=== PATIENT | female | born 1980 | race Caucasian/White ===

== ENCOUNTER 2019-05-19 17:45 | Inpatient (IN) ==
[2019-05-19 19:11] LABS: ALLEN TEST YES; BE 2.4 mmoll (-3.0-3.0); BLOOD TYPE ARTERIAL; HCO3-(ACT) 26.7 mmoll (20.0-26.0); METHB 0.9 % (0.0-1.5); O2(CT) 13.9 mL/dL (15.0-23.0); O2HB 92.9 % (95.0-99.0); PCO2(98.6) 46 mmHg (35-45); PO2(98.6) 64 mmHg (60-100); SAMPLE BLOOD; SAO2 96.3 % (95.0-100.0); THB 10.6 g/dL (11.5-17.4); pH(98.6) 7.39 (7.35-7.45)
[2019-05-19 19:12] LABS: MODALITY CANNULA
[2019-05-19 19:19] LABS: BASO# 0.01 X1000 (0.0-0.2); BASO% 0.1 % (0.0-0.8); EOS# 0.01 X1000 (0.0-0.7); EOS% 0.1 % (0.0-10.0); HEMATOCRIT 34.4 % (37.0-47.0); HEMOGLOBIN 10.4 g/dL (12.0-16.0); IMM GRAN# 0.03 X1000 (0.0-0.04); IMM GRAN% 0.4 % (0.0-0.5); LYMPH# 0.31 X1000 (1.2-3.4); LYMPH% 3.9 % (20.5-51.1); MCHC 30.2 g/dL (33-37); MCV 79.3 FL (81-99); MONO# 0.51 X1000 (0.11-0.59); MONO% 6.4 % (1.7-9.3); MPV 9.4 FL (7.4-10.4); NEUT# 7.06 X1000 (1.4-6.5); NEUT% 89.1 % (42.2-75.2); PLT 203 X1000 (130-400); RBC 4.34 XMIL (4.2-5.4); RDW 15.7 % (11.5-14.5); WBC 7.93 X1000 (4.8-10.8)
--- NOTE | 2019-05-19 19:35 | Diag Imaging Result Doc PS360 ---
EXAM: CHEST-1 VIEW 05/19/2019 HISTORY: sob TECHNIQUE: AP portable semiupright at 1923 COMMENT: There is increased pulmonary vascularity and ill-defined interstitial and alveolar opacity particularly in the right perihilar region and lower lobe. This was not present on 11/08/2015. IMPRESSION: Pulmonary edema and/or pneumonia. Electronically signed by Oscar Lucas 05/19/2019 7:33 PM
[2019-05-19 19:49] LABS: AGAP 11; ALB/GLOB RATIO 1.1; ALBUMIN 3.6 g/dL (3.5-5.0); ALKALINE PHOSPHATASE 125 U/L (32-104); BUN 16 mg/dL (8-22); CHLORIDE 97 mmol/L (98-107); COSMO 266; CREATININE 0.6 mg/dL (0.5-0.9); ESTIMATED GFR > 60; GLUCOSE 96 mg/dL (70-104); GOT 18 U/L (10-30); GPT 9 U/L (10-36); POTASSIUM 4.2 mmol/L (3.5-5.1); SODIUM 132 mmol/L (136-145); TCO2 24 mmol/L (25-35); TOTAL PROTEIN 6.9 g/dL (6.3-8.3)
[2019-05-19] MEDS ORDERED: ZITHROMAX 500 MG/NS 500 MG/250 ML IVPB IV ONE (20:44)
[2019-05-19] MEDS ORDERED: ROCEPHIN 1 GM in NS 50 ML IV ONE (20:44)
--- NOTE | 2019-05-20 00:34 | EKG Report ---
Test Performed on : 05/19/2019 9:09:02 PM Test Reason : od Blood Pressure : / mmHG Vent. Rate : 095 BPM Atrial Rate : 095 BPM P-R Int : 158 ms QRS Dur : 090 ms QT Int : 330 ms P-R-T Axes : 022 007 -18 degrees QTc Int : 414 ms Normal sinus rhythm. Cannot rule out Anterior infarct , age undetermined Abnormal ECG When compared with ECG of 09-OCT-2017 17:58, Nonspecific T wave abnormality now evident in Anterolateral leads Unconfirmed Result
[2019-05-20] MEDS: ROCEPHIN 1 GM in NS 50 ML IV SCH ×2 (00:50→22:28)
[2019-05-20] MEDS: ZITHROMAX 500 MG/NS 500 MG/250 ML IVPB IV SCH ×2 (00:50→23:02)
[2019-05-20] MEDS ORDERED: NS 1,000 ML IV SCH ×2 (01:27→03:04)
[2019-05-20] MEDS ORDERED: SALINE LOCK IV FLUID XX ONE ×2 (03:08→03:20)
[2019-05-20] MEDS ORDERED: NS 1,000 ML IV ONE (03:08)
[2019-05-20 03:28] LABS: ALLEN TEST YES; BE 3.2 mmoll (-3.0-3.0); BLOOD TYPE ARTERIAL; HCO3-(ACT) 27.4 mmoll (20.0-26.0); O2(CT) 13.6 mL/dL (15.0-23.0); O2HB 95.8 % (95.0-99.0); PCO2(98.6) 42 mmHg (35-45); PO2(98.6) 87 mmHg (60-100); SAMPLE BLOOD; pH(98.6) 7.43 (7.35-7.45)
[2019-05-20 03:30] LABS: MODALITY VENTIMASK
[2019-05-20 04:06] LABS: URINE SOURCE CATH
--- NOTE | 2019-05-20 04:08 | HISTORY AND PHYSICAL ---
CHIEF COMPLAINT: Altered mental status. HISTORY OF PRESENT ILLNESS: Ms. Shereen Aldana is a 38-year-old female who has a history of fibromyalgia, aortic aneurysm, migraine headaches, obesity. The patient is not a good historian. She was admitted to the hospital because of change in her mental status. The patient takes a number of medications, a couple have altered mental status, including alprazolam, amitriptyline, vitamin salts, Subutex as well as Neurontin. I have requested a CT scan of the brain, which is currently pending. Her urine drug screen has also been request and is currently pending at this time. The patient also describes having cough productive of yellowish-greenish sputum. As well as shortness of breath, and also hemoptysis. No chest pain. Chest x-ray done at time of presentation showed evidence of pulmonary edema and/or pneumonia. The patient has now ended up being admitted to the floor for further management. PAST MEDICAL HISTORY: Fibromyalgia, aortic aneurysm, migraine headaches, obesity. PAST SURGICAL HISTORY: She has had a tonsillectomy. ALLERGIES: She is allergic to sulfa. SOCIAL HISTORY: She denies any history of cigarette smoking, alcohol, or drug use. FAMILY HISTORY: Positive for diabetes mellitus. MEDICATIONS INCLUDE: 1. Xanax 2 mg p.o. 3 times a day. 2. Amitriptyline 100 mg p.o. at bedtime. 3. Biotin 5000 mcg p.o. daily. 4.Subutex 8 mg sublingual 3 times a day. 5.Gabapentin 600 mg p.o. 3 times a day. 6. Methocarbamol 50 mg as directed. REVIEW OF SYSTEMS: Constitutional: She has fever. MANAGER WELDING: Has headaches. Eyes: No blurred vision. ENT: No sinus or hearing loss. Cardiovascular: No chest pain. Respiratory: Has cough. Gastrointestinal: Has nausea. No diarrhea. Genitourinary: Dysuria. Dermatology: No skin lesions. Hematology: No bleeding problems. Musculoskeletal: No joint pains. Psychiatric: She has anxiety with depression. Allergy: She does have symptoms suggestive of allergic rhinitis. Endocrine: No thyroid disease or diabetes. PHYSICAL EXAMINATION: VITAL SIGNS ARE FOLLOWS: Temperature 98.9 degrees, pulse 93, respiratory rate 20, blood pressure 86/55, oxygen saturation is 100%. HEENT: Atraumatic, normocephalic. She is anicteric. No significant oral lesions. NECK: No lymphadenopathy or thyromegaly. CARDIOVASCULAR: S1, S2. RESPIRATORY SYSTEM: Evidence of good air entry bilaterally. ABDOMEN: Soft, obese, nontender. No masses felt. EXTREMITIES: No evidence of edema. CENTRAL NERVOUS SYSTEM: No obvious focal deficits noted. LABS: WBC 7.93, hematocrit is 34.4, with a platelet count of 203,000. ABG 7.39/46/64/96.3 percent. Sodium is 132, potassium 4.2, chloride is 97, bicarb is 24, BUN is 16, creatinine 0.6, alkaline phosphatase is 125. X-ray of the chest shows pulmonary edema and/or pneumonia. EKG shows a normal sinus rhythm with nonspecific T-wave abnormalities in the anterior and lateral leads. ASSESSMENT AND PLAN: 1. Encephalopathy, most likely toxic. Check CT scan of the brain without contrast. Obtain urine drug screen. Check ammonia level. Check TSH. Avoid medications capable of altering her mental state. 2. Probable pneumonia. Start patient on empiric antibiotics. Check sputum as well as blood cultures. 3. Probable pulmonary edema. Monitor intakes and outputs as well as daily weights. Use diuretics as needed. Stop intravenous fluids at this time. Check 2D echo of the heart. 4. Anemia. Check iron studies, B12 fluid levels, stool for occult blood. 5. Fibromyalgia. Aware. Resume Neurontin when patient is more clinically stable. 6. History of aortic aneurysm. Aware. Followup on chest CT. 7. History of migraine headaches. Aware. 8. Morbid obesity. The patient will need to be on a diet and exercise program. 9. Deep vein thrombosis prophylaxis. Lovenox. 10. Gastrointestinal prophylaxis. Proton pump inhibitor. cc: Artur Lee MD [facility]
[2019-05-20 04:25] LABS: BILIRUBIN URINE NEGATIVE (NEGATIVE); BLOOD URINE TRACE (NEGATIVE); COLOR YELLOW; GLUCOSE URINE NEGATIVE (NEGATIVE); KETONE URINE NEGATIVE (NEGATIVE); LEUKOCYTES URINE NEGATIVE (NEGATIVE); NITRITE URINE NEGATIVE (NEGATIVE); PH URINE 7.5; PROTEIN URINE TRACE mg/dL (NEGATIVE); SP GRAVITY URINE 1.023; TURBIDITY URINE CLEAR (CLEAR); UROBILINOGEN URINE 2 mg/dL (NORMAL)
[2019-05-20 04:27] LABS: UR EPITHELIAL CELLS <10 /HPF (<10); URINE BACTERIA NEGATIVE /HPF; URINE RBC <10 /HPF (<10); URINE WBC <10 /HPF (<10)
[2019-05-20 04:29] LABS: UR AMPHETAMINES QUAL NONE DETECTED (NONE DETECT); UR BARBITUATES QUAL NONE DETECTED (NONE DETECT); UR BENZODIAZEPIN QUAL PRESUMPTIVE POSITIVE (NONE DETECT); UR CANNABINOIDS QUAL PRESUMPTIVE POSITIVE (NONE DETECT); UR COCAINE QUAL NONE DETECTED (NONE DETECT); UR METHADONE QUAL NONE DETECTED (NONE DETECT); UR OPIATES QUAL NONE DETECTED (NONE DETECT); UR OXYCODONE QUAL NONE DETECTED (NONE DETECT); UR PCP QUAL NONE DETECTED (NONE DETECT)
[2019-05-20] MEDS: PRILOSEC PO SCH (06:01)
--- NOTE | 2019-05-20 08:24 | Diag Imaging Result Doc PS360 ---
EXAM: CT HEAD W/O CONTRAST HISTORY: ams TECHNIQUE: CT head without contrast COMPARISON: 11/04/2012 FINDINGS: No parenchymal hemorrhage. No epidural or subdural hematoma. No subarachnoid hemorrhage. No mass identified on this noncontrasted exam. No hydrocephalus. No sinus opacification. IMPRESSION: No hemorrhage. This exam was performed using automated exposure control, adjustment of mA or kV according to patient size, and/or use of iterative reconstruction technique. Electronically signed by Miquel Sims 05/20/2019 8:21 AM
[2019-05-20] MEDS: TYLENOL PO PRN ×2 (08:32→23:51)
--- NOTE | 2019-05-20 11:55 | PROGRESS NOTE ---
DATE: 05/20/2019 SUBJECTIVE: The patient continues to be very lethargic upon my examination. According to history, the patient takes many medications that can cause altered mental status, such as alprazolam, amitriptyline, Subutex, and Neurontin. OBJECTIVE: Vital Signs: Temperature 101.2 degrees, heart rate 95, respiratory rate 18, blood pressure 118/50, O2 saturation 95% on nonrebreather mask. General: This is a very morbidly obese, 38-year-old, female, lying in bed in no acute distress. Cardiovascular: S1, S2 heard. No murmurs, gallops, or rubs. Regular rate and rhythm. Respiratory: Clear bilaterally to auscultation. No work of breathing or using accessory muscles. Abdomen: Soft, nontender to palpation. Bowel sounds present. No organomegaly. Extremities: No clubbing, cyanosis, or edema. Peripheral pulses present in both legs. Neurological: The patient continues to be very lethargic, but awakes to verbal stimuli. Moves all 4 extremities spontaneously. LABORATORY DATA: Reviewed. ASSESSMENT AND PLAN: 1. Toxic encephalopathy. CT of the head is okay. As we mentioned above, the patient is on many sedative medications. Those, of course, have been held since admission. At this point, will continue to monitor. 2. Community-acquired pneumonia. The patient has been started on ceftriaxone and azithromycin that has been started yesterday. She is still spiking fever. Will continue to monitor. The labs from yesterday show no elevation in white cell count. Will continue to monitor. 3. Fibromyalgia. Aware. We are going to hold home medications because the patient is profoundly sedated. 4. History of migraine headaches. Aware. 5. Extreme morbid obesity. Aware. 6. Disposition. Will continue to monitor this patient closely. cc: Moe Garcia MD
[2019-05-20] MEDS: TOPROL XL PO SCH (18:33)
--- NOTE | 2019-05-20 20:29 | ECHO REPORT ---
ORDER DATE: 05/20/2019 MEASUREMENTS: Septal thickness 1.0, left ventricular internal end diastole 5.2, aortic root 3.4, left atrium 3.6. SUMMARY: 1. Technically difficult study due to limited acoustic window quality. Intravenous echo contrast agent Optison was utilized to enhance endocardial definition. 2. Aortic valve is not well imaged. Aortic valve appears to open adequately. Peak gradient across the aortic valve is 19 mmHg with a mean gradient of 11 mmHg. Mitral and tricuspid valves are without evidence of structural abnormality with very mild tricuspid regurgitation. The estimated systolic PA pressure by Doppler is 35 to 40 mmHg suggesting mild pulmonary hypertension. The aortic root is normal in size. 3. Normal left ventricular dimension is suggested. The estimated left ventricular ejection fraction appears to be at least 55%. No obvious regional wall abnormality can be appreciated. The left atrium, right atrium, and right ventricle are normal in size with grossly preserved right ventricular systolic function. 4. No pericardial effusion. 5. Inferior vena cava not well demonstrated. cc: MD Artur Mera MD
[2019-05-21] MEDS: PRILOSEC PO SCH (06:28)
[2019-05-21 07:40] LABS: IRON SATURATION 6 %; TIBC 192 ug/dL; TOTAL IRON 12 ug/dL (49-151); UNBOUND IRON 180 ug/dL (112-346)
[2019-05-21 07:57] LABS: TSH 2.49 uIUmL (0.27-4.20)
[2019-05-21] MEDS ORDERED: LOVENOX SUBQ SCH (09:00)
[2019-05-21] MEDS: TOPROL XL PO SCH (10:09)
[2019-05-21 11:06] LABS: BASO# 0.02 X1000 (0.0-0.2); BASO% 0.2 % (0.0-0.8); EOS# 0.11 X1000 (0.0-0.7); EOS% 0.9 % (0.0-10.0); HEMATOCRIT 31.1 % (37.0-47.0); HEMOGLOBIN 9.3 g/dL (12.0-16.0); IMM GRAN# 0.06 X1000 (0.0-0.04); IMM GRAN% 0.5 % (0.0-0.5); LYMPH# 1.39 X1000 (1.2-3.4); LYMPH% 11.4 % (20.5-51.1); MCH 23.7 PG (27-31); MCHC 29.9 g/dL (33-37); MCV 79.1 FL (81-99); MONO# 0.76 X1000 (0.11-0.59); MONO% 6.2 % (1.7-9.3); MPV 9.7 FL (7.4-10.4); NEUT# 9.83 X1000 (1.4-6.5); NEUT% 80.8 % (42.2-75.2); PLT 214 X1000 (130-400); RBC 3.93 XMIL (4.2-5.4); RDW 15.5 % (11.5-14.5); WBC 12.17 X1000 (4.8-10.8)
[2019-05-21 11:25] VITALS: BP 126/83
[2019-05-21 11:30] LABS: AGAP 14; ALBUMIN 3.1 g/dL (3.5-5.0); BUN 12 mg/dL (8-22); CHLORIDE 100 mmol/L (98-107); COSMO 275; CREATININE 0.6 mg/dL (0.5-0.9); ESTIMATED GFR > 60; GLUCOSE 94 mg/dL (70-104); PHOSPHORUS 2.4 mg/dL (2.7-4.5); POTASSIUM 3.7 mmol/L (3.5-5.1); SODIUM 138 mmol/L (136-145); TCO2 24 mmol/L (25-35)
[2019-05-21] MEDS ORDERED: FLU VACCINE IM ONE (12:03)
--- NOTE | 2019-05-21 14:21 | DISCHARGE SUMMARY ---
ADMISSION DATE: 05/19/2019 DISCHARGE DATE: 05/21/2019 DIAGNOSES: 1. Encephalopathy, toxic. 2. Community acquired pneumonia. 3. Fibromyalgia. 4. History of migraine headaches. 5. Morbid obesity with a BMI of 59.8. 6. History of aortic aneurysm. DIAGNOSTICS: 1. Chest x-ray revealed pulmonary edema and/or pneumonia. 1. CT of the head revealed no hemorrhage. HOSPITAL COURSE: Ms. Aldana presented to the emergency room with altered mental status. She was found to be taking Xanax, Elavil, Subutex and Neurontin. These medications were held while in the hospital. Today, she is awake and alert, cooperative. She was initially given Rocephin and azithromycin for antibiotic coverage and she will be discharged on Omnicef. She had a T-max of 101 degrees on the morning of the . She has been afebrile since. She does report feeling better and that she is ready to be to go home. It was discussed with the patient our concerned over the medications that she is taking, that the Xanax, Elavil, Subutex and Neurontin are all sedating and that this could ultimately lead to her . She did voice understanding of this stating that she has no intention of stopping these medications. We did discuss the fact that these medications have been held since she has been in the hospital and she has actually done well without them. DISCHARGE VITAL SIGNS: Blood pressure is 126/83 with heart rate of 60, respirations 17, temperature is 97.8 degrees with room air saturations 98%. DISCHARGE EXAMINATION: Cardiovascular: Regular rate and rhythm. S1 and S2 appreciated. No murmur. She does have bilateral lower extremity edema. Calves are nontender with peripheral pulses palpable x4 extremities. Pulmonary: She has noted with some scattered expiratory wheezes. Chest rises and falls symmetric with respiration. Chest wall is nontender to palpation. Gastrointestinal: Abdomen is soft, nontender, nondistended with bowel sounds in all 4 quadrants. Neurologic: She is alert and oriented x3. DISCHARGE MEDICATIONS: Omnicef 300 mg p.o. b.i.d. for 10 days, biotin 5000 mcg p.o. daily, Adderall 30 mg p.o. as directed, Elavil 100 mg p.o. at bedtime, metoprolol 50 mg p.o. daily, Subutex 8 mL sublingual t.i.d., Xanax. It was discussed with the patient she did not need to be driving while taking these medications and she needs to discuss this hospitalization and discuss doses with her prescribing physician. FOLLOWUP: Dr. Pelletier. She is to call the office Friday to schedule a visit within the next week next. She has been instructed to call to be seen sooner or return to the ER for any syncope, dizziness, chest pain, palpitations, any lethargy, altered mental status, any shortness of breath, cough, fever, chills, temperature greater than 101, any nausea, vomiting, diarrhea, constipation, black or bloody vomitus or stools or for any questions or concerns that she may have. She is being discharged home in stable condition with family members. TIME SPENT: This is a greater than 30 minute discharge. Dictated by LEMUEL Whyte for Moe Garcia MD Addendum: Patient seen and examined by myself. Agree with LEMUEL note. It reflects my assessment and plan. Patient is being discharged in stable condition. Will be seen by PCP in a week. cc: MD Kinsey Cool CRNP Cesar Garcia-Rodriguez, MD [facility]ITAL[facility]
--- NOTE | 2019-05-21 15:36 | Diag Imaging Result Doc PS360 ---
EXAM: CT THORAX W/O CONTRAST HISTORY: pna, sob TECHNIQUE: CT chest without intravenous contrast COMPARISON: None. FINDINGS: No pleural effusions. No cardiomegaly. No aortic aneurysm. There are small mediastinal nodes. Multinodular infiltrates throughout the right lung. IMPRESSION: Multinodular right-sided pneumonia/infiltrates This exam was performed using automated exposure control, adjustment of mA or kV according to patient size, and/or use of iterative reconstruction technique. Electronically signed by Miquel Sims 05/21/2019 3:34 PM
--- NOTE | 2019-05-24 13:26 | PROVIDER DOCUMENTATION ---
This chart was entered by Veena Fall Scribe, acting as scribe for Maksim Lindsay MD. [id number] Abuse/Overdose <Zenon Calderon - Last Filed: 05/19/19 20:46> - General Source: patient, EMS - History of Present Illness-Drug/Alcohol This episode of drinking or use began:: just prior to arrival Severity: reports: mild Situational problems related to:: reports: N/A Psychiatric Complaints: reports: denies symptoms Associated Symptoms: reports: denies symptoms Any injuries associated with this episode of intoxication?: No Similar Symptoms Previously?: No Recently seen or treated by another doctor?: Yes - Substance Abuse Substance Use: reports: denies - Alcohol Abuse Usually drinks:: unknown Other alcohols?: reports: N/A - Overdose Intentional drug overdose?: No List substance(s) ingested.: Narco Clinician's estimation of suicide risk?: low risk <Maksim Lindsay - Last Filed: 05/24/19 13:26> - General Chief Complaint: Overdose Stated Complaint: ABD PAIN Time Seen by Provider: 05/19/19 19:10 Allergies/Adverse Reactions: Allergies Allergy/AdvReac Type Severity Reaction Status Date / Time oxaprozin [From Daypro] Allergy Intermediate RASH Verified 04/27/19 09:26 Sulfa (Sulfonamide Allergy Intermediate RASH Verified 04/27/19 09:26 Antibiotics) [Sulfa(Sulfonamide Antibiotics)] naloxone Allergy SWELLING Verified 04/27/19 09:43 ketorolac tromethamine * AdvReac Intermediate ABDOMINAL Verified 04/27/19 09:26 [From Toradol] PAIN tramadol AdvReac Intermediate ABDOMINAL Verified 04/27/19 09:26 PAIN Home Medications: Home Medication List Medication Instructions Recorded Confirmed Last Taken Type Gabapentin [Neurontin] 600 mg PO TID 07/01/12 05/20/19 04/27/19 History Biotin 5,000 mcg PO DAILY 10/09/17 05/20/19 04/26/19 History Amitriptyline HCl 100 mg PO QHS PRN 04/27/19 05/20/19 Unknown History Amphetamine Salts [Adderall] 30 mg PO TID 04/27/19 05/20/19 04/26/19 History Buprenorphine S.l. [Subutex] 8 mg SUBLINGUAL TID 04/27/19 05/20/19 04/27/19 History Metoprolol Succinate 50 mg PO DAILY 04/27/19 05/20/19 04/27/19 History Alprazolam 1 mg PO TID PRN PRN #0 05/21/19 05/20/19 04/26/19 Rx Cefdinir 300 mg PO BID #20 cap 05/21/19 Unknown Rx - History of Present Illness-Drug/Alcohol Nature of Presenting Problem: Pt is a 38 yof who presents to the ED via ems with a CC of flu symptoms. Pt family found her at home unresponsive with narcos. Pt family states that she was barely breathing. EMS reports that the pt sats were in the 80s. Ems reports giving the pt nasal cannula. Pt does not state any other complaints. (Maksim Lindsay) Review of Systems - Adult - REVIEW OF SYSTEMS - ADULT Constitutional: reports: see HPI Eyes: reports: no symptoms reported Ears, Nose, Mouth & Throat: reports: no symptoms reported Cardiovascular: reports: no symptoms reported Respiratory: reports: no symptoms reported Gastrointestinal: reports: no symptoms reported Genitourinary: reports: no symptoms reported Musculoskeletal: reports: no symptoms reported Integumentary: reports: no symptoms reported Neurological: reports: no symptoms reported Psychiatric: reports: no symptoms reported Endocrine: reports: no symptoms reported Hematologic/Lymphatic: reports: no symptoms reported Allergic/Immunologic: reports: no symptoms reported All Other Systems: Reviewed and Negative <Maksim Lindsay - Last Filed: 05/24/19 13:26> Past History - Adult - PAST MEDICAL HISTORY-ADULT Review of Records: reports: Nursing Assessment Review, Medications Reviewed, Social history reviewed & non-contributory. Major Childhood Illnesses: reports: denies history Cardiovascular: reports: other (aortic anurism) Respiratory: reports: denies history Gastrointestinal: reports: denies history Obstetrical/Gynecological: reports: ovarian cysts Genitourinary: reports: denies history Musculoskeletal: reports: fibromyalgia, intervertebral disc disease (cervical, lumbar) Neurological: reports: Seizures/Epilepsy Psychiatric: reports: depression Other Conditions: reports: denies history Additional History: - PRIOR SURGERIES/PROCEDURES Surgical/Procedure History: reports: none - IMMUNIZATION STATUS Childhood Immunizations: See Nurse Assessment Flu Vaccine: See Nurse Assessment - FAMILY HISTORY Family History: reviewed, not pertinent <Maksim Lindsay - Last Filed: 05/24/19 13:26> Physical Exam-General - CONSTITUTIONAL General Appearance: alert, no apparent distress - EYES Eyes: PERRL/EOMI, pink conjunctivae - HEAD, EARS, NOSE, MOUTH & THROAT HENMT: normocephalic/atraumatic, moist mucous membranes - NECK Neck: non-tender, full range of motion, normal inspection - RESPIRATORY Respiratory: chest non-tender, lungs clear, normal breath sounds. negative: crackles, wheezing - CARDIOVASCULAR Cardiovascular: normal peripheral pulses, regular rate, rhythm. negative: bradycardia, tachycardia - GASTROINTESTINAL (ABDOMEN) Abdominal Exam: normal bowel sounds, non tender, soft - MUSCULOSKELETAL Back Exam: normal inspection Extremity: normal range of motion, non-tender, normal inspection - SKIN Integumentary: normal color, normal turgor, warm/dry. negative: ecchymosis, erythema - NEUROLOGIC Neurologic: grossly normal - PSYCHIATRIC Psych/Mental Status: normal mood/affect, normal thought content, normal thought process, oriented x 3 <Maksim Lindsay - Last Filed: 05/24/19 13:26> Progress - PLAN OF CARE/RESULTS Result Diagrams: 05/19/19 19:03 05/19/19 19:03 <Zenon Calderon - Last Filed: 05/19/19 20:46> - PLAN OF CARE/RESULTS Result Diagrams: 05/21/19 11:00 05/21/19 11:00 - EKG 1 Time of EKG reading by physician:: 21:10 EKG Read and Signed by:: Zenon Calderon EKG Interpretation (*Must complete 3 of following elements*): Normal (rate- 95 rhythm NSR Cannot rule out anterior infarct, age undetermined) - XRAY 1 XRAY: Bilateral XRAY Study: Chest Impression: Abnormal (EXAM: CHEST-1 VIEW 05/19/2019 HISTORY: sob TECHNIQUE: AP portable semiupright at 1923 COMMENT: There is increased pulmonary vascularity and ill-defined interstitial and alveolar opacity particularly in the right perihilar region and lower lobe. This was not present on 11/08/2015. IMPRESSION: Pulmonary edema and/or pneumonia. Electronically signed by Oscar Lucas 05/19/2019 7:33 PM 05/19/19 1933 Interpreting Physician: Oscar Lucas MD Dictated Date/Time: 05/19/19 193 cc: Zenon Calderon MD; Papito Pelletier MD) <Maksim Lindsay - Last Filed: 05/24/19 13:26> - PLAN OF CARE/RESULTS Progress/Plan/Lab Results: Orders Category Date Time Status Admit - [facility] Routine AdmDCTranf 05/19/19 22:46 Active Activity - Bedrest with BSC ORDERED Care 05/20/19 01:27 Active Vital Signs Order Q 4-HR ASSESS Care 05/19/19 23:01 Active cxr [CHEST-1 VIEW] [RAD] Stat Exams 05/19/19 19:14 Completed ABG [RESP] Routine Lab 05/19/19 19:00 Completed BLOOD CULTURE [BLDCUL] Routine Lab 05/19/19 00:17 Results CBC WITH ELECTRONIC DIFF [HEME] Stat Lab 05/19/19 19:03 Completed COMPREHENSIVE METABOLIC PANEL [CHEM] Stat Lab 05/19/19 19:03 Completed INFLUENZA SCREEN A/B Stat Lab 05/20/19 00:22 Completed SPUTUM CULTURE WITH GRAM STAIN [RM] Routine Lab 05/20/19 15:22 Completed URINALYSIS W/POSS RFLX CULT [URINALYSIS] Stat Lab 05/19/19 04:00 Completed URINE DRUG SCREEN Stat Lab 05/19/19 04:00 Completed 0.9% Sodium Chloride Inj [Ns] 1,000 ml Med 05/20/19 01:27 Discontinued IV 75 mls/hr Azithromycin 500 mg/Ns [Zithromax 500 mg/Ns] Med 05/19/19 23:15 Discontinued 500 mg in 250 ml IV Q24H CefTRIAXONE [Rocephin] 1 gm Med 05/19/19 23:15 Discontinued 0.9% Sodium Chloride Inj [Ns] 50 ml IV Q24H Omeprazole [Prilosec] Med 05/20/19 07:00 Discontinued 40 mg PO DAILY@0700 EKG [EKG] Stat Ther 05/19/19 18:51 Draft Transfer/Admit Order [TRANSFER] Routine Transfer 05/19/19 22:47 Completed Departure - Departure Date of Disposition Decision: 05/19/19 Time of Disposition Decision: 20:46 Certified Medical Emergency: Emergent - Critical Care Note This patient required my direct & personal management of CC.: No <Zenon Calderon - Last Filed: 05/19/19 20:46> <Maksim Lindsay - Last Filed: 05/24/19 13:26> - Departure DIAGNOSIS: Pneumonia Qualifiers: Pneumonia type: due to unspecified organism Laterality: right Lung location: lower lobe of lung Qualified Code(s): J18.1 - Lobar pneumonia, unspecified organism Disposition: ADMITTED INPATIENT 09 Condition: Stable Attestation - Physician/ STEPHENIE Attestation Patient care was provided by Advanced Practice Provider:: No The physician spent face to face time with patient:: Yes Advanced Practice Provider documentation review:: Supervising physician onsite and consulted in the evaluation and care of this patient. The physician did have a face to face encounter with the patient. <Maksim Lindsay - Last Filed: 05/24/19 13:26> This chart was documented by the indicated scribe, (Veena Fall Scribe) and accurately reflects the services I performed and decisions made by , Maksim Lindsay MD, as attested by the provider's signature.
== END 2019-05-21 15:27 | disposition home or self-care (01) | DRG 91 ==
LOC: SUPCPDRO → ED 17:45 → 4N 23:17 → SUATTDRO 23:17
PROVIDERS: ATTEND Internal Medicine